=== PATIENT | male | born 1990 | race American Indian/Alaskan Native ===

== ENCOUNTER 2017-05-05 09:49 | Emergency (ER) | payer SELFPAY ==
--- NOTE | 2017-05-05 11:05 | Emergency Department Report ---
ED General Adult HPI - General Chief complaint: Adult Asthma Stated complaint: ASTHMA Time Seen by Provider: 05/05/17 10:47 Source: patient Mode of arrival: Ambulatory Limitations: No Limitations - History of Present Illness Initial comments: Patient is 26 years old male history of asthma came today for 2 reasons, first, he want some medication to help with his asthma, he stated that his asthma comes every week, he is not on any regular medication. He denied any fever, nausea or vomiting and no shortness of breath at this time. Patient also complain of burning sensation with urination and frequency has been going on for few days. Patient denied any pain now discharged, no testicular pain or swelling. - Related Data Previous Rx's Medication Instructions Recorded Last Taken Type ALBUTEROL Inhaler [ProAir HFA 1 puff IH Q8H #1 inha 11/06/15 Unknown Rx Inhaler] Albuterol Sulfate [Albuterol 0.63% 0.63 mg IH TID PRN #1 box 11/06/15 Unknown Rx NEBS] ALBUTEROL Inhaler [ProAir HFA 2 puff IH QID PRN #1 inhalation 05/05/17 Unknown Rx Inhaler] Ciprofloxacin HCl [Ciprofloxacin 500 mg PO Q12H #20 tab 05/05/17 Unknown Rx TAB] Fluticasone/Salmeterol [Advair 1 each IH BID #1 blst.w.dev 05/05/17 Unknown Rx 250-50 Diskus] Allergies Allergy/AdvReac Type Severity Reaction Status Date / Time No Known Allergies Allergy Verified 05/05/17 09:57 ED Review of Systems ROS: Stated complaint: ASTHMA Other details as noted in HPI Comment: All other systems reviewed and negative Constitutional: denies: chills, fever Respiratory: cough, shortness of breath. denies: orthopnea Cardiovascular: denies: chest pain, palpitations Gastrointestinal: denies: abdominal pain, nausea, vomiting, diarrhea, constipation Musculoskeletal: denies: back pain Neurological: denies: headache, weakness, numbness, paresthesias, confusion ED Past Medical Hx - Past Medical History Previous Medical History?: Yes Hx Hypertension: Yes Hx Asthma: Yes - Surgical History Past Surgical History?: No - Social History Smoking Status: Never Smoker - Medications Home Medications: Home Medications Medication Instructions Recorded Confirmed Last Taken Type ALBUTEROL Inhaler [ProAir HFA 1 puff IH Q8H #1 inha 11/06/15 Unknown Rx Inhaler] Albuterol Sulfate [Albuterol 0.63% 0.63 mg IH TID PRN #1 box 11/06/15 Unknown Rx NEBS] ALBUTEROL Inhaler [ProAir HFA 2 puff IH QID PRN #1 inhalation 05/05/17 Unknown Rx Inhaler] Ciprofloxacin HCl [Ciprofloxacin 500 mg PO Q12H #20 tab 05/05/17 Unknown Rx TAB] Fluticasone/Salmeterol [Advair 1 each IH BID #1 blst.w.dev 05/05/17 Unknown Rx 250-50 Diskus] ED Physical Exam - General Limitations: No Limitations General appearance: alert, in no apparent distress - Head Head exam: Present: atraumatic, normocephalic, normal inspection - Eye Eye exam: Present: normal appearance, PERRL - ENT ENT exam: Present: normal exam, mucous membranes moist - Neck Neck exam: Present: normal inspection, full ROM. Absent: meningismus, lymphadenopathy - Respiratory Respiratory exam: Present: normal lung sounds bilaterally. Absent: respiratory distress, wheezes, rales, rhonchi, chest wall tenderness, accessory muscle use, decreased breath sounds, prolonged expiratory - Cardiovascular Cardiovascular Exam: Present: regular rate, normal rhythm, normal heart sounds - GI/Abdominal GI/Abdominal exam: Present: soft, normal bowel sounds. Absent: tenderness, guarding, rebound, rigid, mass, bruit, pulsatile mass - Extremities Exam Extremities exam: Present: normal inspection, full ROM, normal capillary refill - Neurological Exam Neurological exam: Present: alert, oriented X3, CN II-XII intact, normal gait - Skin Skin exam: Present: warm, intact, normal color. Absent: cyanosis, diaphoretic, erythema ED Course Vital Signs 05/05/17 05/05/17 05/05/17 09:52 12:26 12:47 Temperature 98.2 F Pulse Rate 75 Pulse Rate [ 80 84 Bilateral Upper Lobe] Respiratory 18 Rate Respiratory 18 18 Rate [Bilateral Upper Lobe] Blood Pressure 134/96 Blood Pressure [Right] O2 Sat by Pulse 99 Oximetry 05/05/17 12:51 Temperature 97.7 F Pulse Rate 70 Pulse Rate [ Bilateral Upper Lobe] Respiratory 16 Rate Respiratory Rate [Bilateral Upper Lobe] Blood Pressure Blood Pressure 132/97 [Right] O2 Sat by Pulse 100 Oximetry - Reevaluation(s) Reevaluation #1: 05/05/17 11:49 Reexamined the patient again patient is wheezing with shortness of breath. I order Xopenex and Atrovent breathing treatments. Critical care attestation.: If time is entered above; I have spent that time in minutes in the direct care of this critically ill patient, excluding procedure time. ED Disposition Clinical Impression: Asthma exacerbation, UTI (urinary tract infection) Disposition: - TO HOME OR SELFCARE Is pt being admited?: No Condition: Stable Instructions: Asthma (ED), Urinary Tract Infection in Men (ED) Prescriptions: ALBUTEROL Inhaler [ProAir HFA Inhaler] 2 puff IH QID PRN #1 inhalation PRN Reason: Shortness Of Breath Ciprofloxacin HCl [Ciprofloxacin TAB] 500 mg PO Q12H #20 tab Fluticasone/Salmeterol [Advair 250-50 Diskus] 1 each IH BID #1 blst.w.dev Referrals: PRIMARY CARE, [Primary Care Provider] - 3-5 Days
[2017-05-05 11:24] LABS: Bilirubin,Urine NEG (Negative); Blood,Urine NEG (Negative); Ketones,Urine NEG (Negative); Leukocyte Esterase,Urine SM (Negative); Mucus,Urine FEW /HPF; Nitrite,Urine NEG (Negative); Protein,Urine <15 mg/dL mg/dL (Negative); Urobilinogen,Urine < 2.0 mg/dL (<2.0)
[2017-05-05] MEDS ORDERED: ATROVENT IH ONE (11:49)
[2017-05-05] MEDS ORDERED: XOPENEX IH ONE (11:49)
[2017-05-05 12:52] VITALS: BP 132/97
== END 2017-05-05 12:51 | disposition home or self-care (01) ==
LOC: ED 09:49
DX: J45.901 Unspecified asthma with (acute) exacerbation (principal); N39.0 Urinary tract infection, site not specified; I10 Essential (primary) hypertension
CPT/HCPCS: 81001; 94640

== ENCOUNTER 2017-05-30 02:04 | Emergency (ER) | payer OTHER ==
--- NOTE | 2017-05-30 12:10 | Emergency Department Report ---
ED Male HPI - General Chief complaint: Urogenital-Male Stated complaint: PENILE DISCHARGE Time Seen by Provider: 05/30/17 11:03 Source: patient Mode of arrival: Ambulatory Limitations: No Limitations - History of Present Illness Initial comments: Patient here reports that she started having clear discharge that has mild odor for 2 days after having sex with his girlfriend. He said he was seen here couple weeks ago on 05/05/2017 for similar incident. He said he was given a prescription for ciprofloxacin. Patient is requesting to be tested for STD and also to be treated for STDs. He said his partners with the same symptoms again. He reported that partner got treated a few weeks ago also. Denies any abdominal pain. Denies any urinary burning frequency or urgency. Denies any back pain. Denies any fever or chills or nausea or vomiting. MD Complaint: penile discharge Onset/Timin -: days(s) Radiation: none Severity scale (0 -10): 0 Improves with: none Worsens with: none discharge. denies: swelling, mass, rash, urinary retention, blood in urine, dysuria, fever, nausea/vomiting, incontinence - Related Data Sexually active: Yes Previous Rx's Medication Instructions Recorded Last Taken Type ALBUTEROL Inhaler [ProAir HFA 1 puff IH Q8H #1 inha 11/06/15 Unknown Rx Inhaler] Albuterol Sulfate [Albuterol 0.63% 0.63 mg IH TID PRN #1 box 11/06/15 Unknown Rx NEBS] ALBUTEROL Inhaler [ProAir HFA 2 puff IH QID PRN #1 inhalation 05/05/17 Unknown Rx Inhaler] Ciprofloxacin HCl [Ciprofloxacin 500 mg PO Q12H #20 tab 05/05/17 Unknown Rx TAB] Fluticasone/Salmeterol [Advair 1 each IH BID #1 blst.w.dev 05/05/17 Unknown Rx 250-50 Diskus] Sulfamethoxazole/Trimethoprim 1 each PO BID 10 Days #20 tablet 05/30/17 Unknown Rx [Bactrim DS TAB] Allergies Allergy/AdvReac Type Severity Reaction Status Date / Time No Known Allergies Allergy Verified 05/05/17 09:57 ED Review of Systems ROS: Stated complaint: PENILE DISCHARGE Other details as noted in HPI Comment: All other systems reviewed and negative Constitutional: no symptoms reported ENT: denies: throat pain Respiratory: no symptoms reported Cardiovascular: denies: chest pain, palpitations, dyspnea on exertion, edema, syncope, paroxysmal nocturnal dyspnea Gastrointestinal: denies: abdominal pain, nausea, vomiting, diarrhea Genitourinary: discharge. denies: urgency, dysuria, frequency, hematuria, testicular pain, testicular mass Musculoskeletal: denies: back pain, joint swelling, arthralgia, myalgia Skin: denies: rash Neurological: denies: headache ED Past Medical Hx - Past Medical History Previous Medical History?: Yes Hx Hypertension: Yes Hx Asthma: Yes - Surgical History Past Surgical History?: No - Family History Family history: no significant - Social History Smoking Status: Never Smoker Substance Use Type: None - Medications Home Medications: Home Medications Medication Instructions Recorded Confirmed Last Taken Type ALBUTEROL Inhaler [ProAir HFA 1 puff IH Q8H #1 inha 11/06/15 Unknown Rx Inhaler] Albuterol Sulfate [Albuterol 0.63% 0.63 mg IH TID PRN #1 box 11/06/15 Unknown Rx NEBS] ALBUTEROL Inhaler [ProAir HFA 2 puff IH QID PRN #1 inhalation 05/05/17 Unknown Rx Inhaler] Ciprofloxacin HCl [Ciprofloxacin 500 mg PO Q12H #20 tab 05/05/17 Unknown Rx TAB] Fluticasone/Salmeterol [Advair 1 each IH BID #1 blst.w.dev 05/05/17 Unknown Rx 250-50 Diskus] Sulfamethoxazole/Trimethoprim 1 each PO BID 10 Days #20 tablet 05/30/17 Unknown Rx [Bactrim DS TAB] ED Physical Exam - General Limitations: No Limitations General appearance: alert, in no apparent distress - Head Head exam: Present: atraumatic, normocephalic, normal inspection - Eye Eye exam: Present: normal appearance, PERRL, EOMI Pupils: Present: normal accommodation - ENT ENT exam: Present: normal exam, normal orophraynx, mucous membranes moist - Neck Neck exam: Present: normal inspection, full ROM, other (no c-spine tenderness). Absent: tenderness, meningismus, lymphadenopathy, thyromegaly - Respiratory Respiratory exam: Present: normal lung sounds bilaterally. Absent: respiratory distress, chest wall tenderness - Cardiovascular Cardiovascular Exam: Present: regular rate, normal rhythm, normal heart sounds. Absent: systolic murmur, diastolic murmur - GI/Abdominal GI/Abdominal exam: Present: soft, normal bowel sounds. Absent: distended, tenderness, guarding, rebound, rigid, organomegaly, mass, bruit, pulsatile mass , hernia - Extremities Exam Extremities exam: Present: normal inspection, full ROM, normal capillary refill , other (no clubbing, cyanosis or edema. +2 pulses. Extremities and no neurovascular compromise). Absent: tenderness, pedal edema, joint swelling, calf tenderness - Back Exam Back exam: Present: normal inspection, full ROM. Absent: tenderness, CVA tenderness (R), CVA tenderness (L), muscle spasm, paraspinal tenderness, vertebral tenderness, rash noted - Neurological Exam Neurological exam: Present: alert, oriented X3, normal gait, reflexes normal. Absent: motor sensory deficit - Psychiatric Psychiatric exam: Present: normal affect, normal mood - Skin Skin exam: Present: warm, dry, intact, normal color. Absent: rash ED Course Vital Signs 05/30/17 05/30/17 04:56 11:04 Temperature 98.9 F 97.8 F Pulse Rate 74 76 Respiratory 20 16 Rate Blood Pressure 144/100 Blood Pressure 134/93 [Right] O2 Sat by Pulse 99 96 Oximetry - Reevaluation(s) Reevaluation #1: 05/30/17 13:17 Patient given Rocephin 1 g IM to cover gonorrhea and urinary tract infection, Flagyl 2 g to cover Trichomonas and Zithromax 1 g to cover chlamydia. He had no adverse reaction from medication. Patient also with small urinary tract infection and I discussed with him that he will need to be placed on medication. He had tried Cipro in the past so therefore I will put him in Bactrim. ED Medical Decision Making - Lab Data Lab Results 05/30/17 Range/Units 10:15 Urine Color Yellow (Yellow) Urine Turbidity Clear (Clear) Urine pH 5.0 (5.0-7.0) Ur Specific [place] 1.020 (1.003-1.030) Urine Protein <15 mg/dl (Negative) mg/dL Urine Glucose (UA) Neg (Negative) mg/dL Urine Ketones Neg (Negative) mg/dL Urine Blood Sm (Negative) Urine Nitrite Neg (Negative) Urine Bilirubin Neg (Negative) Urine Urobilinogen < 2.0 (<2.0) mg/dL Ur Leukocyte Esterase Neg (Negative) Urine WBC (Auto) 8.0 H (0.0-6.0) /HPF Urine RBC (Auto) 2.0 (0.0-6.0) /HPF U Epithel Cells (Auto) < 1.0 (0-13.0) /HPF Urine Mucus Few /HPF Urine culture pending On area and chlamydia pending - Medical Decision Making D course: He reported that he has penile discharge just started 2 days ago. He does not have any urinary symptoms. Patient urinalysis positive for small amount of blood, increase in white blood cell otherwise normal. Urine culture sent and pending. Patient had gonorrhea and Chlamydia specimen collected and sent. He wanted to be treated in emergency room for STDs and he was treated with Rocephin 1 g IM this will cover urinary tract infection and gonorrhea. He was given azithromycin to cover chlamydia and Flagyl 2 g by mouth to cover Trichomonas. I discussed the patient he needs to refrain from having sexual activity over the next 2 weeks and needs to follow up with [facility] for repeat testing and in 10 days. I also discussed with him he needs to refrain from drinking alcohol as well as Flagyl has negative reaction with alcohol and can cause nausea and vomiting. Patient voiced understanding and discharged home in stable condition with prescription for Bactrim DS. Critical care attestation.: If time is entered above; I have spent that time in minutes in the direct care of this critically ill patient, excluding procedure time. ED Disposition Clinical Impression: Acute cystitis without hematuria, Penile discharge, Concern about STD in male without diagnosis Disposition: DC-01 TO HOME OR SELFCARE Is pt being admited?: No Does the pt Need Aspirin: No Condition: Stable Instructions: Safe Sex (ED), Urinary Tract Infection in Men (ED), Sexually Transmitted Diseases (ED) Additional Instructions: Please practice safe sex Follow-up with [facility] in 7-10 days for recheck You were treated for STD in ED today You have a urinary tract infection and will be treated with Bactrim DS for 10 days. Please do not have any sexual activity for the next 2 weeks. Take medication as prescribe Prescriptions: Sulfamethoxazole/Trimethoprim [Bactrim DS TAB] 1 each PO BID 10 Days #20 tablet Referrals: SYED REDDY MD [Primary Care Provider] - 2-3 Days Forms: Work/School Release Form(ED)
[2017-05-30 12:48] LABS: Bilirubin,Urine NEG (Negative); Blood,Urine SM (Negative); Color,Urine Yellow (Yellow); Mucus,Urine FEW /HPF; Nitrite,Urine NEG (Negative); Protein,Urine <15 mg/dL mg/dL (Negative); Urobilinogen,Urine < 2.0 mg/dL (<2.0)
[2017-05-30] MEDS ORDERED: FLAGYL PO ONE (13:10)
[2017-05-30] MEDS ORDERED: ROCEPHIN IM STA (13:10)
[2017-05-30] MEDS ORDERED: XYLOCAINE 1% MPF 5 mL INFILTRATI ONE (13:10)
[2017-05-30] MEDS ORDERED: ZITHROMAX PO ONE (13:10)
[2017-05-30 14:04] VITALS: BP 138/92
== END 2017-05-30 14:03 | disposition home or self-care (01) ==
LOC: ED 02:04
DX: N30.00 Acute cystitis without hematuria (principal); I10 Essential (primary) hypertension; J45.909 Unspecified asthma, uncomplicated
CPT/HCPCS: 81001; 87086; 87591; 96372; 99283; J0696

== ENCOUNTER 2017-09-28 23:42 | Emergency (ER) | payer SELFPAY ==
[2017-09-29] MEDS ORDERED: DUONEB *Not for PRN Use IH ONE (00:23)
[2017-09-29 00:24] VITALS: BP 139/93
[2017-09-29] MEDS ORDERED: DELTASONE PO ONE (07:44)
--- NOTE | 2017-09-29 07:45 | Emergency Department Report ---
ED Asthma HPI - General Chief Complaint: Adult Asthma Stated Complaint: ASTHMA Time Seen by Provider: 09/29/17 07:21 Source: patient Mode of arrival: Ambulatory Limitations: No Limitations - History of Present Illness MD Complaint: "asthma attack", wheezing -: Last night Asthma History: childhood onset, history of prior ED visit Severity: moderate, similar to prior Context: none known, recent URI, ran out of meds, allergen exposure Associated Symptoms: dry cough, other (chest tightness and wheezing and). denies: fever, chest pain, hemoptysis, leg edema, syncope Treatments Prior to Arrival: inhaled bronchodilator - Related Data Current Asthma Therapy: none Previous Rx's Medication Instructions Recorded Last Taken Type ALBUTEROL Inhaler [ProAir HFA 1 puff IH Q8H #1 inha 11/06/15 Unknown Rx Inhaler] Ciprofloxacin HCl [Ciprofloxacin 500 mg PO Q12H #20 tab 05/05/17 Unknown Rx TAB] Fluticasone/Salmeterol [Advair 1 each IH BID #1 blst.w.dev 05/05/17 Unknown Rx 250-50 Diskus] Sulfamethoxazole/Trimethoprim 1 each PO BID 10 Days #20 tablet 05/30/17 Unknown Rx [Bactrim DS TAB] ALBUTEROL Inhaler [ProAir HFA 2 puff IH Q6H PRN #1 inhalation 09/29/17 Unknown Rx Inhaler] Albuterol Sulfate [Albuterol 0.63% 3 ml IH Q6H PRN #1 box 09/29/17 Unknown Rx NEBS] Cetirizine HCl [ZyrTEC] 10 mg PO QAM 14 Days #14 capsule 09/29/17 Unknown Rx Fluticasone [Flonase] 1 spray NS QDAY 14 Days #1 bottle 09/29/17 Unknown Rx Prednisone [predniSONE 10 mg 10 mg PO .TAPER 6 Days #1 tab.ds.pk 09/29/17 Unknown Rx (6-Day Pack, 21 Tabs)] Allergies Allergy/AdvReac Type Severity Reaction Status Date / Time No Known Allergies Allergy Verified 05/05/17 09:57 ED Review of Systems ROS: Stated complaint: ASTHMA Other details as noted in HPI Comment: All other systems reviewed and negative Constitutional: denies: chills, fever Eyes: denies: eye pain, eye discharge, vision change ENT: congestion. denies: ear pain, throat pain Respiratory: cough, SOB with exertion. denies: shortness of breath, SOB at rest , stridor, wheezing Cardiovascular: chest pain (chest tightness). denies: palpitations, edema, syncope Gastrointestinal: denies: abdominal pain, nausea, diarrhea Genitourinary: denies: urgency, dysuria Musculoskeletal: denies: back pain, joint swelling, arthralgia Skin: denies: rash, lesions Neurological: denies: headache, weakness, paresthesias Hematological/Lymphatic: easy bruising ED Past Medical Hx - Past Medical History Previous Medical History?: Yes Hx Hypertension: Yes Hx Asthma: Yes - Surgical History Past Surgical History?: No - Family History Family history: asthma (patient is single and lives with his family.), hypertension - Social History Smoking Status: Never Smoker Substance Use Type: None - Medications Home Medications: Home Medications Medication Instructions Recorded Confirmed Last Taken Type ALBUTEROL Inhaler [ProAir HFA 1 puff IH Q8H #1 inha 11/06/15 Unknown Rx Inhaler] Ciprofloxacin HCl [Ciprofloxacin 500 mg PO Q12H #20 tab 05/05/17 Unknown Rx TAB] Fluticasone/Salmeterol [Advair 1 each IH BID #1 blst.w.dev 05/05/17 Unknown Rx 250-50 Diskus] Sulfamethoxazole/Trimethoprim 1 each PO BID 10 Days #20 tablet 05/30/17 Unknown Rx [Bactrim DS TAB] ALBUTEROL Inhaler [ProAir HFA 2 puff IH Q6H PRN #1 inhalation 09/29/17 Unknown Rx Inhaler] Albuterol Sulfate [Albuterol 0.63% 3 ml IH Q6H PRN #1 box 09/29/17 Unknown Rx NEBS] Cetirizine HCl [ZyrTEC] 10 mg PO QAM 14 Days #14 capsule 09/29/17 Unknown Rx Fluticasone [Flonase] 1 spray NS QDAY 14 Days #1 bottle 09/29/17 Unknown Rx Prednisone [predniSONE 10 mg 10 mg PO .TAPER 6 Days #1 tab.ds.pk 09/29/17 Unknown Rx (6-Day Pack, 21 Tabs)] ED Physical Exam - General Limitations: No Limitations General appearance: alert, in no apparent distress - Head Head exam: Present: atraumatic, normocephalic, normal inspection - Eye Eye exam: Present: normal appearance, PERRL, EOMI. Absent: scleral icterus, conjunctival injection Pupils: Present: normal accommodation - ENT ENT exam: Present: normal orophraynx, mucous membranes moist, normal external ear exam, other (bilateral nasal mucosa pale and boggy with clear drainage). Absent: TM's normal bilaterally (bilateral TM congested) - Neck Neck exam: Present: normal inspection, full ROM. Absent: tenderness, lymphadenopathy - Respiratory Respiratory exam: Present: wheezes, other (dry cough). Absent: normal lung sounds bilaterally, respiratory distress, rales, rhonchi, stridor, chest wall tenderness, accessory muscle use, decreased breath sounds, prolonged expiratory - Cardiovascular Cardiovascular Exam: Present: regular rate, normal rhythm, normal heart sounds. Absent: systolic murmur, diastolic murmur - GI/Abdominal GI/Abdominal exam: Present: soft, normal bowel sounds. Absent: tenderness - Extremities Exam Extremities exam: Present: normal inspection, full ROM, normal capillary refill , other (no clubbing, cyanosis or edema. Positive pulses to all extremities and no neurovascular compromise). Absent: tenderness, pedal edema, joint swelling, calf tenderness - Back Exam Back exam: Present: normal inspection, full ROM - Neurological Exam Neurological exam: Present: alert, oriented X3, normal gait - Psychiatric Psychiatric exam: Present: normal affect, normal mood - Skin Skin exam: Present: warm, dry, intact, normal color. Absent: rash ED Course Vital Signs 09/29/17 09/29/17 09/29/17 00:19 00:44 00:50 Temperature 99 F Pulse Rate 94 H Pulse Rate [ 91 H 94 H Anterior Bilateral Throughout] Respiratory 18 Rate Respiratory 18 18 Rate [Anterior Bilateral Throughout] Blood Pressure 139/93 O2 Sat by Pulse 95 Oximetry 09/29/17 07:47 Temperature Pulse Rate 85 Pulse Rate [ Anterior Bilateral Throughout] Respiratory 18 Rate Respiratory Rate [Anterior Bilateral Throughout] Blood Pressure O2 Sat by Pulse 98 Oximetry - Reevaluation(s) Reevaluation #1: 09/29/17 08:07 received DuoNeb treatment in emergency room and reports that he feels better. He received Deltasone 60 mg by mouth. Lung sounds clear after treatment. ED Medical Decision Making - Medical Decision Making ED course: Patient here complaining of wheezing and cough and and that he ran out of his asthma medication. Patient will present to the lung casper and was given DuoNeb 1 treatment in emergency room and is also some milligrams by mouth. Upon reevaluation lung sounds better. Patient is feeling better. He does not have a primary care physician and they referred him to outside Medical Center to manage his chronic asthma. Patient discharged home with prescription for prednisone Dosepak, albuterol inhaler and albuterol nebulizer. He voiced understanding of need to follow-up and also diagnosis and discharged home in stable condition. Critical care attestation.: If time is entered above; I have spent that time in minutes in the direct care of this critically ill patient, excluding procedure time. ED Disposition Clinical Impression: Upper respiratory infection with cough and congestion Acute asthma exacerbation Qualifiers: Asthma severity: mild Asthma persistence: intermittent Qualified Code(s): J45.21 - Mild intermittent asthma with (acute) exacerbation Disposition: - TO HOME OR SELFCARE Is pt being admited?: No Does the pt Need Aspirin: No Condition: Stable Instructions: Asthma (ED), Upper Respiratory Infection (ED) Additional Instructions: Please follow-up with outside Medical Center for primary care visit. Call to schedule an appointment to manage chronic asthma Take medication as prescribed Increase your fluid intake Zyrtec and Flonase is to prevent postnasal drip from cause an asthma flare. Prescriptions: ALBUTEROL Inhaler [ProAir HFA Inhaler] 2 puff IH Q6H PRN #1 inhalation PRN Reason: wheezing and cough Albuterol Sulfate [Albuterol 0.63% NEBS] 3 ml IH Q6H PRN #1 box PRN Reason: Wheezing Cetirizine HCl [ZyrTEC] 10 mg PO QAM 14 Days #14 capsule Fluticasone [Flonase] 1 spray NS QDAY 14 Days #1 bottle Prednisone [predniSONE 10 mg (6-Day Pack, 21 Tabs)] 10 mg PO .TAPER 6 Days #1 tab.ds.pk Referrals: PRIMARY CARE, [Primary Care Provider] - 09/30/17 [facility] [Outside] - 09/30/17
== END 2017-09-29 09:19 | disposition home or self-care (01) ==
LOC: ED 23:42
DX: J45.21 Mild intermittent asthma with (acute) exacerbation (principal); J06.9 Acute upper respiratory infection, unspecified; I10 Essential (primary) hypertension; Z79.899 Other long term (current) drug therapy
CPT/HCPCS: 94640; 99282; J7512

== ENCOUNTER 2018-03-05 17:15 | Emergency (ER) | payer SELFPAY ==
[2018-03-05] MEDS ORDERED: ASPIRIN PO ONE (17:39)
[2018-03-05 18:04] LABS: Basophils # (Auto) 0.1 K/mm3 (0.0-0.1); Basophils % (Auto) 0.9 % (0.0-1.8); Eosinophils # (Auto) 0.2 K/mm3 (0.0-0.4); Eosinophils % (Auto) 2.1 % (0.0-4.3); Hematocrit 44.4 % (35.5-45.6); Hemoglobin 14.6 gm/dl (11.8-15.2); Lymphocytes # (Auto) 1.6 K/mm3 (1.2-5.4); Lymphocytes % (Auto) 17.4 % (13.4-35.0); Mean Corpuscular HGB Conc 33 % (32-34); Mean Corpuscular Volume 77 fl (84-94); Monocytes # (Auto) 0.7 K/mm3 (0.0-0.8); Monocytes % (Auto) 7.9 % (0.0-7.3); Platelet Count 275 K/mm3 (140-440); Red Blood Count 5.76 M/mm3 (3.65-5.03); Red Cell Distribution Width 15.4 % (13.2-15.2)
[2018-03-05 18:08] LABS: Mean Corpuscular Hemoglobin 25 pg (28-32)
[2018-03-05 18:13] LABS: INR 1.11 (0.87-1.13)
[2018-03-05 18:14] LABS: Partial Thromboplastin Time 25.8 Sec. (24.2-36.6)
[2018-03-05 18:25] LABS: BUN/Creatinine Ratio 17; Blood Urea Nitrogen 12 mg/dL (9-20); Calcium 9.5 mg/dL (8.4-10.2); Hemolysis Index 223
[2018-03-05] MEDS ORDERED: DECADRON IM ONE (19:52)
[2018-03-05] MEDS ORDERED: PROVENTIL IH ONE (19:52)
--- NOTE | 2018-03-05 20:05 | Emergency Department Report ---
ED General Adult HPI - General Chief complaint: Chest Pain Stated complaint: CHEST PAIN Time Seen by Provider: 03/05/18 19:51 Source: patient Mode of arrival: Ambulatory Limitations: No Limitations - History of Present Illness Initial comments: pt is a 27 y/o aam with hx of asthma who presents for cough wheezing chest wall pain, cough productive yellow green, pain is 4/10 with cough states noc wheezing low grade fever no n/v no back pain no dizziness no lightheadedness, symptoms relieved by nothing , pain improved by rest. and albuterol inhaler. Onset/Timin -: week(s) Location: chest Radiation: non-radiation Severity scale (0 -10): 5 Quality: sharp Consistency: intermittent Improves with: medication, rest Worsens with: movement, other (cough ) Associated Symptoms: cough, fever/chills, shortness of breath, other (wheezing ) Treatments Prior to Arrival: none - Related Data Previous Rx's Medication Instructions Recorded Last Taken Type ALBUTEROL Inhaler (OR & NICU) 1 puff IH Q8H #1 inha 11/06/15 Unknown Rx [ProAir HFA Inhaler] Ciprofloxacin HCl [Ciprofloxacin 500 mg PO Q12H #20 tab 05/05/17 Unknown Rx TAB] Fluticasone/Salmeterol [Advair 1 each IH BID #1 blst.w.dev 05/05/17 Unknown Rx 250-50 Diskus] Sulfamethoxazole/Trimethoprim 1 each PO BID 10 Days #20 tablet 05/30/17 Unknown Rx [Bactrim DS TAB] ALBUTEROL Inhaler (OR & NICU) 2 puff IH Q6H PRN #1 inhalation 09/29/17 Unknown Rx [ProAir HFA Inhaler] Albuterol Sulfate [Albuterol 0.63% 3 ml IH Q6H PRN #1 box 09/29/17 Unknown Rx NEBS] Cetirizine HCl [ZyrTEC] 10 mg PO QAM 14 Days #14 capsule 09/29/17 Unknown Rx Fluticasone [Flonase] 1 spray NS QDAY 14 Days #1 bottle 09/29/17 Unknown Rx Prednisone [predniSONE 10 mg 10 mg PO .TAPER 6 Days #1 tab.ds.pk 09/29/17 Unknown Rx (6-Day Pack, 21 Tabs)] ALBUTEROL NEB's [Proventil 0.083% 2.5 mg IH Q4H PRN #25 vial 03/05/18 Unknown Rx NEBS] Azithromycin 250 mg PO DAILY #6 tablet 03/05/18 Unknown Rx Benzonatate [Tessalon Perles] 200 mg PO Q8HR PRN #30 capsule 03/05/18 Unknown Rx Budesonide/Formoterol Fumarate 2 puff IH BID #1 hfa.aer.ad 03/05/18 Unknown Rx [Symbicort 160-4.5 Mcg Inhaler] Dexamethasone [Decadron] 4 mg PO BID #6 tablet 03/05/18 Unknown Rx Ibuprofen 800 mg PO TID PRN #30 tablet 03/05/18 Unknown Rx Allergies Allergy/AdvReac Type Severity Reaction Status Date / Time No Known Allergies Allergy Verified 05/05/17 09:57 ED Review of Systems ROS: Stated complaint: CHEST PAIN Other details as noted in HPI Constitutional: fever Eyes: denies: eye pain, eye discharge, vision change ENT: congestion. denies: ear pain, throat pain Respiratory: cough, shortness of breath, wheezing Cardiovascular: denies: chest pain, palpitations Endocrine: no symptoms reported Gastrointestinal: denies: abdominal pain, nausea, diarrhea Genitourinary: denies: urgency, dysuria Musculoskeletal: denies: back pain, joint swelling, arthralgia Skin: denies: rash, lesions Neurological: denies: headache, weakness, paresthesias Psychiatric: denies: anxiety, depression Hematological/Lymphatic: denies: easy bleeding, easy bruising ED Past Medical Hx - Past Medical History Hx Hypertension: Yes Hx Asthma: Yes - Social History Smoking Status: Never Smoker Substance Use Type: None - Medications Home Medications: Home Medications Medication Instructions Recorded Confirmed Last Taken Type ALBUTEROL Inhaler (OR & NICU) 1 puff IH Q8H #1 inha 11/06/15 Unknown Rx [ProAir HFA Inhaler] Ciprofloxacin HCl [Ciprofloxacin 500 mg PO Q12H #20 tab 05/05/17 Unknown Rx TAB] Fluticasone/Salmeterol [Advair 1 each IH BID #1 blst.w.dev 05/05/17 Unknown Rx 250-50 Diskus] Sulfamethoxazole/Trimethoprim 1 each PO BID 10 Days #20 tablet 05/30/17 Unknown Rx [Bactrim DS TAB] ALBUTEROL Inhaler (OR & NICU) 2 puff IH Q6H PRN #1 inhalation 09/29/17 Unknown Rx [ProAir HFA Inhaler] Albuterol Sulfate [Albuterol 0.63% 3 ml IH Q6H PRN #1 box 09/29/17 Unknown Rx NEBS] Cetirizine HCl [ZyrTEC] 10 mg PO QAM 14 Days #14 capsule 09/29/17 Unknown Rx Fluticasone [Flonase] 1 spray NS QDAY 14 Days #1 bottle 09/29/17 Unknown Rx Prednisone [predniSONE 10 mg 10 mg PO .TAPER 6 Days #1 tab.ds.pk 09/29/17 Unknown Rx (6-Day Pack, 21 Tabs)] ALBUTEROL NEB's [Proventil 0.083% 2.5 mg IH Q4H PRN #25 vial 03/05/18 Unknown Rx NEBS] Azithromycin 250 mg PO DAILY #6 tablet 03/05/18 Unknown Rx Benzonatate [Tessalon Perles] 200 mg PO Q8HR PRN #30 capsule 03/05/18 Unknown Rx Budesonide/Formoterol Fumarate 2 puff IH BID #1 hfa.aer.ad 03/05/18 Unknown Rx [Symbicort 160-4.5 Mcg Inhaler] Dexamethasone [Decadron] 4 mg PO BID #6 tablet 03/05/18 Unknown Rx Ibuprofen 800 mg PO TID PRN #30 tablet 03/05/18 Unknown Rx ED Physical Exam - General Limitations: No Limitations General appearance: alert, in no apparent distress - Head Head exam: Present: atraumatic, normocephalic - Eye Eye exam: Present: normal appearance, PERRL, EOMI - ENT ENT exam: Present: mucous membranes moist, TM's normal bilaterally, normal external ear exam - Expanded ENT Exam Expanded Ear exam: Present: normal external inspection Throat exam: Positive: tonsillar erythema, tonsillomegaly. Negative: tonsillar exudate, R peritonsillar mass, L peritonsillar mass - Neck Neck exam: Present: normal inspection, full ROM, lymphadenopathy. Absent: tenderness, meningismus, thyromegaly - Respiratory Respiratory exam: Present: normal lung sounds bilaterally, wheezes, chest wall tenderness (anterior chest wall tenderness to palpation no ecchymosis no swelling no crepitus no deformity ). Absent: respiratory distress, rhonchi - Cardiovascular Cardiovascular Exam: Present: regular rate, normal rhythm, normal heart sounds. Absent: systolic murmur, diastolic murmur, rubs, gallop - GI/Abdominal GI/Abdominal exam: Present: soft, normal bowel sounds. Absent: tenderness, bruit, hernia - Rectal Rectal exam: Present: deferred - Extremities Exam Extremities exam: Present: normal inspection - Back Exam Back exam: Present: normal inspection - Neurological Exam Neurological exam: Present: alert, oriented X3, CN II-XII intact, normal gait. Absent: motor sensory deficit - Psychiatric Psychiatric exam: Present: normal affect, normal mood - Skin Skin exam: Present: warm, dry, intact, normal color. Absent: rash ED Course Vital Signs 03/05/18 03/05/18 17:26 19:50 Temperature 98.7 F Pulse Rate 90 Respiratory 18 20 Rate Blood Pressure 147/98 O2 Sat by Pulse 95 98 Oximetry ED Medical Decision Making - Lab Data Result diagrams: 03/05/18 17:49 03/05/18 17:49 - Radiology Data Radiology results: report reviewed, image reviewed normal cxr no infiltrates no opacities - Medical Decision Making Heart score: 0, MARLENY :0 , this is bronchitis, with chest wall pain with inspiration and cough , symptoms improved with albuterol shaji, decadrion, nsaid, plan: albuterol inhaler , refill symbicort 2 puffs bid, decadron, Tessalon pearls, ibuprofen, zpack pt will follow up with [facility] in 2-3 days. pt verbalized agreement and understanding of discharge plan. for dc to home in stable condition at this time. Critical care attestation.: If time is entered above; I have spent that time in minutes in the direct care of this critically ill patient, excluding procedure time. ED Disposition Clinical Impression: Bronchitis, Costochondritis, URI, acute Disposition: DC-01 TO HOME OR SELFCARE Is pt being admited?: No Does the pt Need Aspirin: No Condition: Good Instructions: Acute Bronchitis (ED), Costochondritis (ED), Upper Respiratory Infection (ED) Prescriptions: ALBUTEROL NEB's [Proventil 0.083% NEBS] 2.5 mg IH Q4H PRN #25 vial PRN Reason: sob wheezing Azithromycin 250 mg PO DAILY #6 tablet Benzonatate [Tessalon Perles] 200 mg PO Q8HR PRN #30 capsule PRN Reason: Cough Budesonide/Formoterol Fumarate [Symbicort 160-4.5 Mcg Inhaler] 2 puff IH BID #1 hfa.aer.ad Dexamethasone [Decadron] 4 mg PO BID #6 tablet Ibuprofen 800 mg PO TID PRN #30 tablet PRN Reason: pain Referrals: PRIMARY CARE, [Primary Care Provider] - 3-[address] [facility] [Outside] - 3-5 Days Forms: Work/School Release Form(ED) Time of Disposition: 21:20
--- NOTE | 2018-03-05 20:47 | XRay Report ---
FINAL REPORT PROCEDURE: XR CHEST ROUTINE 2V TECHNIQUE: PA and lateral chest radiographs were obtained. CPT 93911 HISTORY: chest pain COMPARISON: No prior studies are available for comparison. FINDINGS: Heart: Normal. Mediastinum/Vessels: Normal. Lungs/Pleural space: Normal. Bony thorax: No acute osseous abnormality. Other: IMPRESSION: Normal examination.
[2018-03-05 21:56] VITALS: BP 134/97
== END 2018-03-05 21:59 | disposition home or self-care (01) ==
LOC: ED 17:15
DX: J40 Bronchitis, not specified as acute or chronic (principal); M94.0 Chondrocostal junction syndrome [Tietze]; J06.9 Acute upper respiratory infection, unspecified; I10 Essential (primary) hypertension
CPT/HCPCS: 36415; 71046; 80048; 84484; 85025; 85610; 85730; 93005; 93010; 94640; 96372; 99284; J1100